=== PATIENT | female | born 1985 | race Caucasian/White ===

== ENCOUNTER 2020-08-15 07:20 | Inpatient (IN) | payer OTHER ==
[~2020-08-15] VITALS: Ht 162.6 cm; Wt 69.3 kg
[2020-08-15] MEDS ORDERED: BASAGLAR K100 UNIT/1 (07:46)
[2020-08-15 08:15] LABS: BASOPHILS ABSOLUTE AUTO 0.05 K/mm3 (0.00-0.23); BASOPHILS PERCENT AUTO 0 % (0-2); EOSINOPHILS ABSOLUTE AUTO 0.11 K/mm3 (0.00-0.68); EOSINOPHILS PERCENT AUTO 1 % (0-6); Hemoglobin 16.2 g/dL (11.5-16.0); IMMATURE GRAN ABSOLUTE AUTO 0.12 K/mm3 (0.00-0.10); IMMATURE GRAN PERCENT AUTO 1 % (0-1); LYMPHOCYTES ABSOLUTE AUTO 2.62 K/mm3 (0.84-5.20); LYMPHOCYTES PERCENT AUTO 12 % (21-46); MONOCYTES ABSOLUTE AUTO 0.97 K/mm3 (0.16-1.47); MONOCYTES PERCENT AUTO 4 % (4-13); Mean Corpuscular HGB 31.7 pg (26.0-34.0); Mean Corpuscular HGB Conc 33.1 g/dL (31.5-36.5); Mean Corpuscular Volume 96 fL (80-100); Mean Platelet Volume 9.5 fL (9.1-12.4); NEUTROPHILS ABSOLUTE AUTO 18.92 K/mm3 (1.96-9.15); NEUTROPHILS PERCENT AUTO 83 % (41-73); Platelet Count 393 K/mm3 (150-400); RDW Coefficient Variation 13.3 % (11.7-14.2); RDW Standard Deviation 47.7 fL (35.1-46.3); Red Blood Cell Count 5.11 M/mm3 (3.80-5.20); White Blood Cell Count 22.79 K/mm3 (4.00-11.30)
[2020-08-15 08:32] LABS: Alanine Aminotransfer (ALT/SGP 39 U/L (12-78); Albumin, Blood 4.1 g/dL (3.4-5.0); Albumin/Globulin Ratio 0.9 (0.8-1.8); Alk Phos 237 U/L (50-136); Anion Gap 12 mmol/L (6-16); Aspartate Aminotrans (AST/SGOT 46 U/L (12-37); Beta-hydroxybutyrate 32.6 mg/dL (0.2-2.8); Bilirubin, Total 0.8 mg/dL (0.1-1.0); Blood Urea Nitrogen 15 mg/dL (8-24); Bun/Creatinine Ratio 22.5 (12.0-20.0); CO2, Blood 18 mmol/L (21-32); Calcium, Blood 9.9 mg/dL (8.5-10.1); Chloride, Blood 105 mmol/L (98-108); Creatinine, Blood 0.67 mg/dL (0.40-1.00); Globulin, Blood 4.6 g/dL (2.2-4.0); Glomerular Filtration Rate >60 (60-); Glucose, Blood 323 mg/dL (70-99); Magnesium, Blood 2.2 mg/dL (1.6-2.4); Sodium, Blood 135 mmol/L (136-145); Total Protein, Blood 8.7 g/dL (6.4-8.2)
[2020-08-15 08:53] LABS: Source, Urine Clean Catch
[2020-08-15 08:59] LABS: Appearance, Urine Hazy (Clear); Bilirubin, Urine Neg (Neg); Blood, Urine 1+ (Neg); Color, Urine Yellow (P-Yellow); Glucose Qualitative, Urine 4+ (Neg); Ketones, Urine 4+ (Neg); Leukocyte Esterase, Urine 3+ (Neg); Nitrite, Urine Neg (Neg); Protein, Urine 2+ (Neg); Urobilinogen, Urine NORM (Normal)
[2020-08-15 09:15] LABS: Bacteria Many /hpf; Squamous Epithelial Cells Few /hpf (Few); Yeast/Fungi Urine Many /hpf
[2020-08-15 09:35] LABS: Base Excess Venous -8.3 mmol/L; Bicarbonate Venous 19.4 mmol/L (24.0-30.0); PCO2 Venous 26.3 mmHg (38-42); PO2 Venous 89.5 mmHg (38-42)
[2020-08-15] MEDS ORDERED: PRINIVIL10 MG PO (13:05)
[2020-08-15] MEDS ORDERED: HYDHCL25 PO (13:05)
[2020-08-15] MEDS ORDERED: INSULIN AS100 UNIT/7 (13:05)
[2020-08-15] MEDS ORDERED: PROM25 PO (13:06)
[2020-08-15] MEDS ORDERED: VENL37.5ER PO (13:07)
[2020-08-15] MEDS ORDERED: OXYC5 PO (13:08)
[2020-08-15 15:08] LABS: U Amphetamine Screen Not Detected; U Barbituate Screen Not Detected; U Benzodiazapine Screen Not Detected; U Buprenorphine Screen Not Detected; U Cannabinoids Screen DETECTED; U Cocaine Screen Not Detected; U Methadone Screen Not Detected; U Methamphetamine Screen Not Detected; U Opiates Screen Not Detected; U Oxycodone Screen Not Detected; U Phencyclidine Screen Not Detected; U Propoxyphene Screen Not Detected
--- NOTE | 2020-08-15 17:05 | NUR ---
SHIFT SUMMARY PT WITH INTRACTABLE VOMITTING UPON ARRIVAL, PT RECIEVED 5MG REGLAN AND 25MG PHENERGAN ON ARRIVAL FOR VOMITTING. PT REPORTS 8/10 PAIN WHICH SHE WASTREATED WITH 50MCG FENTANYL IVP. PT WAS UP TO SHOWER ON ARRIVAL SHE STATES THAT IT WILL HELP WITH NAUSEA BUT DID NOT HELP WITH NAUSEA. A/O X4, ASNWERING QUESTIONS APPROPRIATELY IN FULL SENTENCES. PT HAS INSULIN IMPLANTED INSULIN PUMP. MAGGIE THE PROVIDER IS CALLED TO CLARIFY INSULIN DOSING REGIMEN. PT WAS TREATED FOR GLUCOSE OF 425 WITH 12UNITS REG INSULIN AND 15 UNITS SEMGLEE. WILL RECHECK GLUCOSE IN 1 HR
[2020-08-15 17:14] LABS: Anion Gap 17 mmol/L (6-16); Blood Urea Nitrogen 17 mg/dL (8-24); Bun/Creatinine Ratio 23.9 (12.0-20.0); CO2, Blood 12 mmol/L (21-32); Calcium, Blood 9.8 mg/dL (8.5-10.1); Chloride, Blood 104 mmol/L (98-108); Creatinine, Blood 0.71 mg/dL (0.40-1.00); Glomerular Filtration Rate >60 (60-); Glucose, Blood 448 mg/dL (70-99); Sodium, Blood 133 mmol/L (136-145)
[2020-08-15 17:17] LABS: Potassium, Blood 6.6 mmol/L (3.5-5.5)
--- NOTE | 2020-08-15 17:49 | NUR ---
CALL PLACED TO PROVIDER STEFFANY, CRITICAL LAB CALLED WELL. PT WITH CONTINUED HYPERGLYCEMIA OF 404 DESPITE INSULIN ADMINISTRATION. NEW ORDERS ARE OBTAINED FOR NS BOLUS, NS RATE CHANGE, 5 UNIT INSULIN NOW, AND INSULIN DRIP, WITH STATUS CHANGE TO ICU. PROVIDER IS PLACING ORDERS AT THE TIME OF THIS NOTE
[2020-08-15 18:50] LABS: Blood Urea Nitrogen 20 mg/dL (8-24); Bun/Creatinine Ratio 28.1 (12.0-20.0); Calcium, Blood 9.4 mg/dL (8.5-10.1); Chloride, Blood 105 mmol/L (98-108); Creatinine, Blood 0.71 mg/dL (0.40-1.00); Glomerular Filtration Rate >60 (60-); Glucose, Blood 377 mg/dL (70-99); Potassium, Blood 4.9 mmol/L (3.5-5.5); Sodium, Blood 135 mmol/L (136-145)
[2020-08-15 18:51] LABS: Anion Gap 21 mmol/L (6-16); CO2, Blood 9 mmol/L (21-32)
[2020-08-15 19:08] LABS: Base Excess Venous -18.1 mmol/L; PCO2 Venous 34.1 mmHg (38-42); PO2 Venous 73.4 mmHg (38-42); pH Blood Venous 7.12 (7.34-7.37)
--- NOTE | 2020-08-15 20:00 | NUR ---
ASSUMPTION OF CARE RECEIVED REPORT FROM ARMANDO ROSEN IN PCU, PATIENT TRANSFERRED TO ICU VIA BED, PIVOT TRANSFERED SELF TO BED. A/O, STEADY GAIT WITH AMBULATION, TACHYCARDIC IN 130'S. SATS GREATER THAN 95% ON RA. ORIENTED PATIENT TO PLAN, ROOM AND CALL LIGHT. WILL REVIEW ORDERS AND TREAT PRESCRIBED.
--- NOTE | 2020-08-15 21:28 | NUR ---
HEART RATE REPORTED PATIENT'S HEART RATE 140-150S TO DR. BEASLEY, BLOOD SUGAR BELOW 250. CHANGED FLUID ORDERS. WILL CONTINUE TO MONITOR HEART RATE.
[2020-08-15 23:48] LABS: Anion Gap 9 mmol/L (6-16); Blood Urea Nitrogen 14 mg/dL (8-24); Bun/Creatinine Ratio 21.2 (12.0-20.0); CO2, Blood 18 mmol/L (21-32); Calcium, Blood 8.5 mg/dL (8.5-10.1); Chloride, Blood 110 mmol/L (98-108); Creatinine, Blood 0.66 mg/dL (0.40-1.00); Glomerular Filtration Rate >60 (60-); Glucose, Blood 198 mg/dL (70-99); Potassium, Blood 4.6 mmol/L (3.5-5.5); Sodium, Blood 137 mmol/L (136-145)
--- NOTE | 2020-08-16 | NUR ---
REASSESSMENT NO ACUTE CHANGES FROM INITIAL ASSESSMENT. LABS REVIEWED, INSULIN CONTINUES TO INFUSE WITH IV FLUIDS ORDERED. REMAINS TACHYCARDIC WITH NO DISCOMFORTS.
[2020-08-16 03:23] LABS: BASOPHILS ABSOLUTE AUTO 0.03 K/mm3 (0.00-0.23); BASOPHILS PERCENT AUTO 0 % (0-2); EOSINOPHILS PERCENT AUTO 0 % (0-6); Hematocrit 39.7 % (33.0-51.0); Hemoglobin 12.8 g/dL (11.5-16.0); IMMATURE GRAN ABSOLUTE AUTO 0.08 K/mm3 (0.00-0.10); IMMATURE GRAN PERCENT AUTO 1 % (0-1); LYMPHOCYTES PERCENT AUTO 12 % (21-46); MONOCYTES ABSOLUTE AUTO 1.13 K/mm3 (0.16-1.47); MONOCYTES PERCENT AUTO 6 % (4-13); Mean Corpuscular HGB 31.4 pg (26.0-34.0); Mean Corpuscular HGB Conc 32.2 g/dL (31.5-36.5); Mean Corpuscular Volume 98 fL (80-100); Mean Platelet Volume 9.5 fL (9.1-12.4); NEUTROPHILS ABSOLUTE AUTO 14.33 K/mm3 (1.96-9.15); NEUTROPHILS PERCENT AUTO 81 % (41-73); Platelet Count 365 K/mm3 (150-400); RDW Coefficient Variation 13.5 % (11.7-14.2); Red Blood Cell Count 4.07 M/mm3 (3.80-5.20); White Blood Cell Count 17.77 K/mm3 (4.00-11.30)
[2020-08-16 03:38] LABS: Anion Gap 6 mmol/L (6-16); Blood Urea Nitrogen 13 mg/dL (8-24); Bun/Creatinine Ratio 21.1 (12.0-20.0); CO2, Blood 21 mmol/L (21-32); Calcium, Blood 8.8 mg/dL (8.5-10.1); Chloride, Blood 113 mmol/L (98-108); Creatinine, Blood 0.62 mg/dL (0.40-1.00); Glomerular Filtration Rate >60 (60-); Glucose, Blood 180 mg/dL (70-99); Potassium, Blood 4.2 mmol/L (3.5-5.5); Sodium, Blood 140 mmol/L (136-145)
--- NOTE | 2020-08-16 04:00 | NUR ---
REASSESSMENT NO ACUTE CHANGES FROM PREVIOUS ASSESSMENT. BLOOD SUGARS STABLE, INSULIN DRIP TURNED TO 2UNITS/HR. HEART RATE REMAINS ELEVATED BUT DECREASING TO 110'S. PATIENT COMFORTABLE AT THIS TIME. WILL CONTINUE TO MONITOR.
--- NOTE | 2020-08-16 04:46 | NUR ---
LABS REPORTED PATIENT'S LABS TO DR. VIDES. REPORTED CURRENT CBG, ANION GAP AND FLUIDS. HE CURRENLTY WANTS TO KEEP PATIENT ON THE INSULIN DRIP AND TO HAVE THE ONCOMING HOSPITALIST ADDRESS CHANGES.
--- NOTE | 2020-08-16 06:19 | NUR ---
SHIFT SUMMARY INSULIN INFUSED THROUGH NIGHT AND CONTINUES TO INFUSE PER DR. VIDES. ANION GAP CLOSED PER RECENT LAB RESULTS. PATIENT DENYING NAUSEA AT THIS TIME, URINE OUTPUT ADEQUATE BUT CONTINUES TO HAVE FLANK PAIN R/TO KIDNEY INFECTION. HEATING PAD IN PLACE AND PATIENT REPOSITIONS SELF FOR COMFORT. VITALS STABLE WITH HEART RATE DECREASING TO 110S THIS AM. PATIENT AMBULATES INDEPENDENTLY TO TOILET WITH STEADY GAIT. PATIENT EDUCATED REGARDING PLAN FOR THIS MORNING. ICE WATER GIVEN, TOLERATING WELL. WILL CONTINUE TO MONITOR AND REPORT TO ONCOMING RN.
--- NOTE | 2020-08-16 07:39 | NUR ---
Assumed care of pt at 0700. Bedside report received from Afshan ROSEN. Pt A&O x 4. Answers questions. Follows commands. Verbalizes needs. Pt on room air. Lungs clear t/o. ST per monitor. Rate 120. Pt receiving insulin drip at 1 unit per hour. CBG stable. Plan to address continued need for insulin drip with provider rounds. Bed in lowest position. Call light in reach. Pt denies need at this time.
--- NOTE | 2020-08-16 09:30 | NUR ---
Dr Anne in to see pt. Plan for patient to restart insulin pump per usual regimen and turn off insulin drip 30 minutes afterwards. Patient receives 0.65 units/hr insulin and then gives self coverage for high blood sugars and carb counts for meals. Provider states pt may be medical floor status with telemetry.
--- NOTE | 2020-08-16 18:49 | NUR ---
SUMMARY Patient medical floor status without telmetry. Insulin drip off and pt has been dosing own insulin through insulin pump. Pt ate lunch and dinner, tolerating well. Intermittent nausea, mild. No vomiting. Pt independent in room. On room air. Bed in lowest position. Call light in reach. Will continue to closely monitor until care handoff and bedside report with oncoming Rn.
--- NOTE | 2020-08-16 19:30 | NUR ---
ASSUMED PT CARE BEDSIDE REPORT WITH VANDANA RN AT 1900. ASSUMED PT CARE. PT ALERT AND ORIENTED, INDEPENDENT IN ROOM. USES CALL LIGHT APPROPRIATELY. PT DENIES CP, DENIES SOB. C/O CONSTANT THROBBING PAIN TO FLANK, RELIEVED WITH FENTANYL AND REPOSITIONING. PT HAS SL POWERGLIDE TO SLIM. SITE WNL. DRESSING C/D/I. PT VOIDS IN TOILET. C/O INTERMITTENT NAUSEA (NONE CURRENTLY). LUNG SOUNDS CLEAR. PT ON ROOM AIR. SKIN C/D/I. CALL LIGHT IN REACH. SEE FULL SHIFT ASSESSMENT.
[2020-08-17 03:51] LABS: BASOPHILS ABSOLUTE AUTO 0.02 K/mm3 (0.00-0.23); BASOPHILS PERCENT AUTO 0 % (0-2); EOSINOPHILS ABSOLUTE AUTO 0.06 K/mm3 (0.00-0.68); EOSINOPHILS PERCENT AUTO 1 % (0-6); Hematocrit 38.6 % (33.0-51.0); Hemoglobin 12.4 g/dL (11.5-16.0); IMMATURE GRAN ABSOLUTE AUTO 0.01 K/mm3 (0.00-0.10); IMMATURE GRAN PERCENT AUTO 0 % (0-1); LYMPHOCYTES ABSOLUTE AUTO 3.72 K/mm3 (0.84-5.20); LYMPHOCYTES PERCENT AUTO 41 % (21-46); MONOCYTES ABSOLUTE AUTO 0.56 K/mm3 (0.16-1.47); MONOCYTES PERCENT AUTO 6 % (4-13); Mean Corpuscular HGB 31.4 pg (26.0-34.0); Mean Corpuscular HGB Conc 32.1 g/dL (31.5-36.5); Mean Corpuscular Volume 98 fL (80-100); NEUTROPHILS ABSOLUTE AUTO 4.79 K/mm3 (1.96-9.15); NEUTROPHILS PERCENT AUTO 52 % (41-73); Platelet Count 315 K/mm3 (150-400); RDW Coefficient Variation 13.3 % (11.7-14.2); RDW Standard Deviation 48.1 fL (35.1-46.3); Red Blood Cell Count 3.95 M/mm3 (3.80-5.20); White Blood Cell Count 9.16 K/mm3 (4.00-11.30)
[2020-08-17 04:08] LABS: Anion Gap 5 mmol/L (6-16); Blood Urea Nitrogen 6 mg/dL (8-24); Bun/Creatinine Ratio 8.9 (12.0-20.0); CO2, Blood 23 mmol/L (21-32); Calcium, Blood 8.4 mg/dL (8.5-10.1); Chloride, Blood 112 mmol/L (98-108); Creatinine, Blood 0.67 mg/dL (0.40-1.00); Glomerular Filtration Rate >60 (60-); Glucose, Blood 111 mg/dL (70-99); Magnesium, Blood 1.8 mg/dL (1.6-2.4); Phosphorus, Blood 2.9 mg/dL (2.5-4.9); Potassium, Blood 3.9 mmol/L (3.5-5.5); Sodium, Blood 140 mmol/L (136-145)
--- NOTE | 2020-08-17 06:22 | NUR ---
SHIFT SUMMARY PT HAD WONDERFUL SHIFT. REMAINED ALERT, ORIENTED AND INDEPENDENT IN ROOM. MULT C/O BACK AND FLANK PAIN, MEDICATED WITH TYLENOL AND FENTANYL. PT VSS, SBP WNL, SATS >95% ON RA. LUNG SOUNDS CLEAR. PT SKIN C/D/I. POWERGLIDE TO SLIM, SITE WNL, DRESSING INTACT. PLAN FOR PT TO DC HOME. CALL LIGHT IN REACH. WILL REPORT TO ON OIMG SHIFT.
[2020-08-17] MEDS ORDERED: ACET325 PO (09:20)
[2020-08-17] MEDS ORDERED: Senna-Extra17.2 MG PO (09:21)
[2020-08-17] MEDS ORDERED: OXAYDO5 M1 PO (09:22)
[2020-08-17] MEDS ORDERED: SULTRIDS PO (09:44)
== END 2020-08-17 10:05 | disposition home or self-care (01) | DRG 871 ==
LOC: ER 07:20 → PCU 12:17 → ICUW 12:17 → PCU 14:01 → ICUW 19:42
PROVIDERS: Internal Medicine; Nurse Practitioner Acute Care; Physician Assistant; ADMIT Family Medicine
DX: A41.9 Sepsis, unspecified organism (principal); E10.10 Type 1 diabetes mellitus with ketoacidosis without coma; N10 Acute pyelonephritis; Z90.5 Acquired absence of kidney; I10 Essential (primary) hypertension; F41.1 Generalized anxiety disorder; F32.9 Major depressive disorder, single episode, unspecified; E66.01 Morbid (severe) obesity due to excess calories; F43.10 Post-traumatic stress disorder, unspecified; Z96.41 Presence of insulin pump (external) (internal); Z68.27 Body mass index [BMI] 27.0-27.9, adult
CPT/HCPCS: 36415; 76770; 80048; 80053; 81001; 82010; 82803; 82947; 83605; 83735; 84100; 85025; 87040; 87086; 93005; 93010; 96361; 96365; 96375; 99285-25; A9270; A9270-GY; C1751; J0610; J0692; J0696; J1630; J1644; J1650; J1815; J2270; J2405; J2550; J2765; J3010; J7030; J7042; J7120

== ENCOUNTER 2022-04-21 21:40 | Inpatient (IN) | payer OTHER ==
[~2022-04-21] VITALS: Ht 162.6 cm; Wt 69.6 kg
[~2022-04-21 21:40] MED LIST: ACET325 PO; BASAGLAR K100 UNIT/1; HYDHCL25 PO; INSULIN AS100 UNIT/7; LISI10 PO; OXAYDO5 M1 PO; OXYC5 PO; PROM25 PO; SULTRIDS PO; Senna-Extra17.2 MG PO; VENL37.5ER PO
[2022-04-21 22:17] LABS: BASOPHILS ABSOLUTE AUTO 0.05 K/mm3 (0.00-0.23); BASOPHILS PERCENT AUTO 0 % (0-2); Base Excess Venous -8.1 mmol/L; Bicarbonate Venous 19.2 mmol/L (24.0-30.0); EOSINOPHILS ABSOLUTE AUTO 0.01 K/mm3 (0.00-0.68); EOSINOPHILS PERCENT AUTO 0 % (0-6); Hematocrit 47.9 % (33.0-51.0); Hemoglobin 16.3 g/dL (11.5-16.0); IMMATURE GRAN ABSOLUTE AUTO 0.06 K/mm3 (0.00-0.10); IMMATURE GRAN PERCENT AUTO 0 % (0-1); LYMPHOCYTES ABSOLUTE AUTO 2.17 K/mm3 (0.84-5.20); LYMPHOCYTES PERCENT AUTO 12 % (21-46); MONOCYTES ABSOLUTE AUTO 0.88 K/mm3 (0.16-1.47); MONOCYTES PERCENT AUTO 5 % (4-13); Mean Corpuscular HGB 30.9 pg (26.0-34.0); Mean Corpuscular Volume 91 fL (80-100); Mean Platelet Volume 9.1 fL (9.1-12.4); NEUTROPHILS ABSOLUTE AUTO 14.59 K/mm3 (1.96-9.15); NEUTROPHILS PERCENT AUTO 82 % (41-73); Platelet Count 470 K/mm3 (150-400); RDW Coefficient Variation 13.5 % (11.7-14.2); RDW Standard Deviation 45.2 fL (35.1-46.3); Red Blood Cell Count 5.27 M/mm3 (3.80-5.20); White Blood Cell Count 17.76 K/mm3 (4.00-11.30)
[2022-04-21] MEDS ORDERED: CLONAZEPAM1 MG PO (22:20)
[2022-04-21 22:56] LABS: Albumin, Blood 4.1 g/dL (3.4-5.0); Albumin/Globulin Ratio 0.9 (0.8-1.8); Beta-hydroxybutyrate 56.4 mg/dL (0.2-2.8); Bilirubin, Total 1.1 mg/dL (0.1-1.0); Bun/Creatinine Ratio 14.2 (12.0-20.0); Calcium, Blood 10.4 mg/dL (8.5-10.1); Creatinine, Blood 1.06 mg/dL (0.40-1.00); Globulin, Blood 4.6 g/dL (2.2-4.0); Potassium, Blood 4.5 mmol/L (3.5-5.5); Total Protein, Blood 8.7 g/dL (6.4-8.2)
[2022-04-21 23:47] LABS: Source, Urine Clean Catch
[2022-04-21 23:51] LABS: Appearance, Urine Cloudy (Clear); Bilirubin, Urine Neg (Neg); Blood, Urine 5+ (Neg); Color, Urine Brown (P-Yellow); Glucose Qualitative, Urine 4+ (Neg); Ketones, Urine 4+ (Neg); Leukocyte Esterase, Urine 3+ (Neg); Nitrite, Urine Neg (Neg); Protein, Urine 3+ (Neg); Urobilinogen, Urine NORM (Normal)
[2022-04-22 00:12] LABS: Red Blood Cells, Urine TNTC /hpf (0-2); White Blood Cells, Urine 25-50 /hpf (0-5)
[2022-04-22 00:13] LABS: Bacteria Many /hpf; Hyaline Casts 0-2 /lpf (0-2); Yeast/Fungi Urine Mod /hpf
[2022-04-22 00:14] LABS: Squamous Epithelial Cells Few /hpf (Few); Transitional Epithelial Cells Rare /hpf (0-Rare)
[2022-04-22 06:07] LABS: Bun/Creatinine Ratio 17.9 (12.0-20.0); Calcium, Blood 9.1 mg/dL (8.5-10.1); Creatinine, Blood 0.84 mg/dL (0.40-1.00); Potassium, Blood 4.4 mmol/L (3.5-5.5)
[2022-04-22] MEDS ORDERED: BASAGLAR K100 UNIT/3 SC (06:24)
--- NOTE | 2022-04-22 06:30 | NUR ---
ASSUMED CARE. PT ARRIVED TO UNIT AROUND 0530. AOX3, ILL APPEARING. STATES INSULIN PUMP STOPPED WORKING ABOUT A MONTH AGO, SHE HAS BEEN USING LANTUS 10 UNITS AT BEDTIME AND SLIDING SCALE T/O DAY. 2 DAYS AGO SHE STARTED TO NOT FEEL WELL, REPORTS N/V/D WITH ABDOMINAL PAIN, POOR APPETITE. HAS NOT BEEN ABLE TO KEEP ANYTHING DOWN. EVERYTHING SHE TRYS TO EAT COME UP. WEAKNESS. ON ARRIVAL TO ED SHE WAS IN DKA WITH BLOOD SUGARS 350'S, GAP 19, NA 135, CO2 17. BLOOD SUGARS NOW 200'S, SHE ARRIVED ON D51/2 NS AT 150CC/HR NOW TURNED DOWN TO 125ML/HR DUE TO TACHYCARDIA OF 130'S AND SBP IN THE 170-180'S. DENIES CHEST PAIN. GIVEN 10MG OF HYDRALAZINE, 0.5MG OF IV ATIVAN, AND ZOFRAN 4MG IV. SHE STILL HAVING DRY HEVES BUT SINCE ATIVAN IT HAS EASED. INSULIN GTT 3 UNITS/HR, GAP IS CLOSED, NA HAS CORRECTED. LONG HISTORY OF KIDNEY DISEASE WITH MULTIPLE STENTS ON LEFT SIDE, AND RIGHT KIDNEY IS REMOVED. URINE IS BROWN, CLOUDY, AND SEDIMENT. MEDIPORT ACCESSED, SHE REPORTS SHE HAS VERY SMALL VEINS. ONLY 1 BLOOD CULTURE WAS PULELD FROM [facility] WAS ABLE TO ACCESS A VASCULAR SITE. INFORMED DAYSHIFT RN OF THIS. DR. REBOLLEDO WAS CALLED REGARDING VITALS, CONSTANT NAUSEA, AND FOR MED ORDER CHANGES. PLEASE SEE ORDERS. CALL LIGHT IS IN REACH, BED IN LOW POSTION.
[2022-04-22 06:41] LABS: BASOPHILS ABSOLUTE AUTO 0.02 K/mm3 (0.00-0.23); BASOPHILS PERCENT AUTO 0 % (0-2); EOSINOPHILS PERCENT AUTO 0 % (0-6); Hemoglobin 14.9 g/dL (11.5-16.0); IMMATURE GRAN ABSOLUTE AUTO 0.08 K/mm3 (0.00-0.10); IMMATURE GRAN PERCENT AUTO 0 % (0-1); LYMPHOCYTES ABSOLUTE AUTO 0.83 K/mm3 (0.84-5.20); LYMPHOCYTES PERCENT AUTO 4 % (21-46); MONOCYTES ABSOLUTE AUTO 0.39 K/mm3 (0.16-1.47); MONOCYTES PERCENT AUTO 2 % (4-13); Mean Corpuscular HGB Conc 33.1 g/dL (31.5-36.5); Mean Corpuscular Volume 94 fL (80-100); NEUTROPHILS ABSOLUTE AUTO 18.27 K/mm3 (1.96-9.15); NEUTROPHILS PERCENT AUTO 93 % (41-73); Platelet Count 398 K/mm3 (150-400); RDW Coefficient Variation 13.7 % (11.7-14.2); RDW Standard Deviation 46.9 fL (35.1-46.3); Red Blood Cell Count 4.81 M/mm3 (3.80-5.20); White Blood Cell Count 19.59 K/mm3 (4.00-11.30)
[2022-04-22 08:51] LABS: Bun/Creatinine Ratio 17.2 (12.0-20.0); Calcium, Blood 9.4 mg/dL (8.5-10.1); Creatinine, Blood 0.82 mg/dL (0.40-1.00); Potassium, Blood 4.6 mmol/L (3.5-5.5)
[2022-04-22 08:52] LABS: Magnesium, Blood 1.8 mg/dL (1.6-2.4); Phosphorus, Blood 1.6 mg/dL (2.5-4.9)
--- NOTE | 2022-04-22 09:00 | NUR ---
0800 ASSUMED CARE PATIENT RESTED A BIT OVER NIGHT. SHE IS STILL COMPLAINING OF NAUSEA AND VOMITED ONE TIME THIS AM. ZOFRAN AND REGLAN GIVEN AT 0615. PATIENT IS ON INSULIN DRIP AND D5 1/2 NS GOING AT 125 HR INTO MEDIPORT, PULSE 130 SINUS TACH WITH STABLE BP AND CLEAR LUNG SOUNDS ON ROOM AIR. GLUCOSE STILL RUNNING IN 200'S. PATIENT UP TO TOILET TO VOID. NPO FOR NOW. WILL CONTINUE TO MONITOR AND TREAT DIRECTED.
--- NOTE | 2022-04-22 16:17 | NUR ---
UPDATE: 1600 PATIENT HAS BEEN ON AND OFF RESTING AND WRETCHING. SHE HAS BEEN UP TO BEDSIDE COMMODE AND TOILET HOWEVER EACH TIME SHE HAS ACTIVITY SHE BECOME NAUSEA'S AND VOMITS UP GREEN AND YELLOW BILE 50 TO 200 ML AT A TIME. SHE WAS BATHED THIS AFTERNOON AND SHEETS CHANGED ON BEDDING. IV FLUID 3RD BAG OF NS COMPLETE. POTASSIUM PHOS STILL GOING IV AND D5 1/2 NS AT 125/HR ALONG WITH INSULIN GTT NOW AT 7UNITS/HR. PULSE IS STILL ELEVATED 110-135 SINUS TACH. BP STILL SLIGHTLY ELEVATED SBP 140-160 DBP 100'S, LUNGS ARE CLEAR TO AUSCULTATION AND ABD SOFT AND + BT X 4 QUAD. NO EDEMA NOTED. POWER GLIDE PLACED TO RIGHT UPPER ARM FOR MORE ACCESS SITES. WILL CONTINUE TO MONITOR AND TREAT PTS DIRECTED.
[2022-04-22 16:46] LABS: Bun/Creatinine Ratio 11.4 (12.0-20.0); Calcium, Blood 8.5 mg/dL (8.5-10.1); Creatinine, Blood 0.7 mg/dL (0.40-1.00); Potassium, Blood 3.5 mmol/L (3.5-5.5)
--- NOTE | 2022-04-22 18:29 | NUR ---
END OF SHIFT SUMMARY: PATIENT HAS BEEN IN AND OUT OF BED TO COMMODE. NAUSEA STILL IN WAVES AND VOMITTING AFTER ACTIVITY. DR ANAYA WAS UPDATED THIS AFTERNOON. HER ZOFRAN WAS INCREASED PER DOSE AND SHE GOT A ONE TIME DOSE OF PHENERGRAN. WILL FOLLOW UP WITH PROGRESS AFTER MEDICATION. SHE IS STILL TACHYCARDIC LOW 100'S TO 120'S BP HAS STILL REMAINED 160'S/90'S-100'S. URINE OUTPUT IS ABOUT 300ML EACH TIME AND COLOR IS MORE FEDERICO CLEAR THAN FULL FEDERICO/PINK LIKE IT WAS THIS MORMING. GLUCOSE IS COMING DOWN TO NORMAL RANGE WITH INSULIN DRIP GOING AND TITRATING DOWN, NOW AT 6UNITS/HR. WILL GIVE REPORT TO NEXT SHIFT TO RESUME CARE.
--- NOTE | 2022-04-22 19:15 | NUR ---
ASSUMPTION OF CARE PT SITTING UP IN BED DURING BEDSIDE REPORT. SHE IS RECEIVING INSULIN GTT 6UNITS/HR AND D5 1/2NS 125ML/HR. PT HAS EMESIS BAG AND REPORTS CONSISTENT NAUSEA DESPITE MEDICATION. RECHECKED CBG 85, TITRATED INSULIN GTT AT THIS TIME. PT UP TO BEDSIDE COMMODE WITH MINIMAL ASSISTANCE AND VOIDED 200ML PALE YELLOW URINE. SINUS TACH ON MONITOR WITH RATE 110S-130S, INCREASES WITH ACTIVITY. SEE SHIFT ASSESSMENT.
[2022-04-23 04:03] LABS: Hematocrit 41.4 % (33.0-51.0); Hemoglobin 14.3 g/dL (11.5-16.0); Mean Corpuscular HGB 31.4 pg (26.0-34.0); Mean Corpuscular HGB Conc 34.5 g/dL (31.5-36.5); Mean Corpuscular Volume 91 fL (80-100); Mean Platelet Volume 8.9 fL (9.1-12.4); Platelet Count 387 K/mm3 (150-400); RDW Coefficient Variation 13.6 % (11.7-14.2); RDW Standard Deviation 45.6 fL (35.1-46.3); Red Blood Cell Count 4.56 M/mm3 (3.80-5.20); White Blood Cell Count 19.28 K/mm3 (4.00-11.30)
[2022-04-23 04:19] LABS: Albumin, Blood 3.2 g/dL (3.4-5.0); Anion Gap 8 mmol/L (6-16); Blood Urea Nitrogen 4 mg/dL (8-24); Bun/Creatinine Ratio 6.3 (12.0-20.0); CO2, Blood 21 mmol/L (21-32); Calcium, Blood 8.8 mg/dL (8.5-10.1); Chloride, Blood 110 mmol/L (98-108); Creatinine, Blood 0.63 mg/dL (0.40-1.00); Glomerular Filtration Rate 119 (60-); Glucose, Blood 126 mg/dL (70-99); Potassium, Blood 3.4 mmol/L (3.5-5.5); Sodium, Blood 139 mmol/L (136-145)
--- NOTE | 2022-04-23 06:13 | NUR ---
SHIFT SUMMARY PT HAS MOSTLY SLEPT THROUGH THE SECOND HALF OF THE NIGHT. WHEN AWAKE SHE CONTINUES TO FEEL NAUSEOUS AND OCCASIONALLY DRY HEAVES BUT HAS NOT VOMITTED IN A FEW HOURS. NAUSEA INCREASES WITH ACTIVITY. ABDOMEN SOFT, BOWEL TONES HYPOACTIVE. REMAINS NPO DUE TO NAUSEA AND VOMITTING. L FLANK PAIN PERSISTS AND PT HAS USED HEATING PAD FOR COMFORT. SHE CONTINUES TO RECEIVE INSULIN 2UNITS/HR AND D5 1/2NS 125ML/HR. SHE IS A&OX4. STANDBY ASSIST TO USE BEDSIDE COMMODE, REPOSITIONS SELF IN BED. SHE HAS VOIDED SEVERAL TIMES THIS SHIFT. DURING NAUSEA AND VOMITTING EPISODES, HR SINUS TACH 120S-130S AND HYPERTENSIVE. WHEN RESTING HR 100S, SBP 120S-130S. WILL REPORT TO ONCOMING RN.
--- NOTE | 2022-04-23 09:00 | NUR ---
AM NOTE: ASSUMED CARE OF PT AT 0700. PT ALERT AND ORIENTED X 4 THIS MORNING. THE PT LOOKS TIRED AND EXHAUSTED. SINCE THE PT HAS BEEN AWAKE THE PT HAS BEEN CONTINUOUSLY VOMITTING; PT MEDICATED PER EMAR. THE PT HAS CLEAR L/S THROUGHOUT WITH RR 18-24, O2 LEVELS 98<, AND ON RA. THE PT IS ON THE CONTINUOUS EQUINE INTERN WITH HR IN THE 130'S AND SBP IN THE 170'S; PT HR AND SBP INCREASES WITH ACTIVITY/STRESS. PT CURRENTLY HAS AN INSULIN DRIP AT 3 UNIT/HR AND NS AT 125 MLS/HR. PT HAS LEFT FLANK PAIN CURRENTLY WITH PAIN AT 5/10; PT DECLINED TYLENOL AND IS USING A HEATING PAD TO HELP ALLEVIATED HER PAIN. THE PT IS USING THE BEDSIDE COMMODE INDEPENDENTLY WITH STANDBY ASSIST. DR ANAYA IN TO ASSESS THE PT AT 0915. ORDERS FOR ATIVAN AND PROTONIX PUT IN AT THIS TIME. THE PROVIDER VERBILIZES GOALS FOR GETTING THE N/V UNDER CONTROL AND INITIATING SOLID FOODS TODAY. WILL CONTINUE TO MONITOR THROUGHOUT THE DAY.
--- NOTE | 2022-04-23 17:57 | NUR ---
SHIFT SUMMARY: PT CONTINUES TO HAVE N/V THROUGHOUT THE DAY; PT MEDICATED PER EMAR AROUND THE CLOCK. THE PT HAS CLEAR L/S THROUGHOUT, RR 20-22 AND IS ON RA. THE PT HAS BEEN TACHYCARDIC WITH HR IN THE 130'S, BUT WHEN SLEEPING HR DROPS TO 90-100'S; SBP HAVE BEEN MAINTAINING 160'S. THE PT HAS C/O LEFT FLANK PAIN, DR. ANAYA ORDERED 15 MG OF TORDOL FOR PAIN MANAGMENT THAT WAS INITIATED THIS MORNING; THE PT RESPONDED WELL TO THIS AND WAS ABLE TO GET SOME REST. THERE ARE ORDERS FOR A RENAL ULTRASOUND; [employer] NOTIFIED AND WERE ARE STILL ON THE SCHEUDLE FOR SOMETIME TODAY. THE PT HAS BEEN HAVING CBG Q1HR WITH INSULIN TITRATED IN RESPONSE, CURRENTLY INSULIN IS RUNNING AT 2 UNITS/HR. THE PT HAS BEEN SLEEPING IN AND OUT THIS SHIFT. THE PT HAS NOT BEEN ABLE TO TOLERATE FLUIDS AT THIS TIME; SHE HAS BEEN EATING ICE-CHIPS, BUT N/V RETURN. THE PT'S AUNT, SUSHANT, UPDATED THIS SHIFT AND ALL QUESTIONS WERE ANSWERED AT THIS TIME. PT IS INDEPENDENT WITH A STANDBY ASSIST WHEN USING THE BEDSIDE COMMODE. WILL CONTINURE TO MONITOR UNTIL ONCOMING NURSE ARRIVES.
--- NOTE | 2022-04-23 20:00 | NUR ---
ASSUMED CARE OF PT AT 1900. REPORT RECEIVED AT BEDSIDE. PT PRESENTS IN BED. OPENS EYES TO GREETING. BEGINS TO HAVE DRY HEAVING. PT HAS SMALL AMOUNT OF BILE TINGED LIQUID. PT SOMEWHAT WITHDRAWN. INSULIN DRIP AT 3 UNITS PER HOUR. HOURLY GLUCOSE CHECKS. WILL REVIEW CHART AND PLAN OF CARE FOR THIS PT.
--- NOTE | 2022-04-23 21:48 | NUR ---
CALL MADE TO DR VIDES CONCERNING ON-GOING VOMITING. PT DOES HAVE DRY HEAVES WHEN STAFF ENTERS ROOM. SHE REQUESTED ATIVAN AND WAS INFORMED UNDER PREVIOUS ORDER IT WAS TOO SOON. DID RECEIVE ORDER TO INCREASE FREQUENCY IF NEEDED AND DOSE. AM LABS ALSO ORDERED.
--- NOTE | 2022-04-23 23:30 | NUR ---
PT MEDICATED WITH 1 MG ATIVAN WITH IMPROVEMENT IN HEART RATE, BLOOD PRESSURE, AND NAUSEA. PT CURRENTLY RESTING IN BED.
[2022-04-24 03:30] LABS: Hematocrit 36.6 % (33.0-51.0); Hemoglobin 12.6 g/dL (11.5-16.0); Mean Corpuscular HGB 31.2 pg (26.0-34.0); Mean Corpuscular HGB Conc 34.4 g/dL (31.5-36.5); Mean Corpuscular Volume 91 fL (80-100); Mean Platelet Volume 9.3 fL (9.1-12.4); Platelet Count 319 K/mm3 (150-400); RDW Coefficient Variation 13.5 % (11.7-14.2); RDW Standard Deviation 45.1 fL (35.1-46.3); Red Blood Cell Count 4.04 M/mm3 (3.80-5.20); White Blood Cell Count 11.84 K/mm3 (4.00-11.30)
[2022-04-24 03:47] LABS: Bun/Creatinine Ratio 4.2 (12.0-20.0); Creatinine, Blood 0.72 mg/dL (0.40-1.00); Potassium, Blood 3.3 mmol/L (3.5-5.5)
--- NOTE | 2022-04-24 06:25 | NUR ---
PT HAS BEEN UP TO TOILET SEVERAL AT DIFFERENT TIMES DURING NIGHT. NO ISSUES WITH AMBULATION. NAUSEA HAS BEEN MINIMAL THIS NIGHT WITH DOSING OF ATIVAN. PT DOES AWAKEN THIS MORNING AND COMPLAINS OF NAUSEA AND IS MEDICATED WITH ATIVAN. PT CALLS BACK AFTER APPROX 15 MINUTES AND ASKED IF SHE COULD HAVE ANYTHING FOR ANXIETY. REMINDED PT THAT THE ATIVAN IS FOR ANXIETY, AND THAT IT HAS ALSO BEEN HELPING WITH HER NAUSEA. PT CURRENTLY NOT HAVING DRY HEAVES SHE WAS WHEN SHE REQUESTED ANXIETY MEDICATION. PT CONTINUES ON INSULIN DRIP AT 2 UNTIS PER HOUR. CONTINUING WITH Q 1 HOUR GLUCOSE CHECKS. PT MEDICATED WITH 4 MG ZOFRAN THIS MORNING FOR RETURN OF DRY HEAVING. WILL CONTINUE TO MONITOR PT, AND WILL REPORT OFF TO ONCOMING RN.
--- NOTE | 2022-04-24 09:02 | NUR ---
AM NOTE: PT AWAKE AND A&O X 4; THE PT IS DRY HEAVING THIS MORNING WHEN I CAME ONTO SHIFT. DR ANAYA D/C ATIVAN AND INITIATED HOME ANTI-ANXIETY MEDS; PT UNABLE TO TOLERATE PO MEDS AT THIS TIME DUE TO CONTINUOS N/V. THE PT HAS CLEAR LUNG SOUNDS THROUGHOUT, RR 16-18, O2 LEVELS MAINTAINING 97< AND IS ON RA. PT TACHYCARDIC WITH HR IN THE 130-140'S AND SBP IN THE 180'S. PT WAS ABLE TO SHOWER THIS MORNING INDEPENDENTLY; NEW BED LINENS PLACED. PT WAS ABLE TO BRUSH TEETH THIS MORNING. NEW 5-LEAD STICKERS PLACED THIS MORNING. THE PT INDEPENDENT WITH BEDSIDE COMMODE WITH STANDBY ASSIST. PHOTOGRAPHIC HAND DEVELOPER AT BEDSIDE THIS MORNING AT 0908 TO DISCUSS WITH THE PT DIET HX AND PLAN OF CARE FOR ADVANCING DIET WHEN PT CAN TOLERATE. WILL CONTINUE TO MONITOR THROUGHOUT THE DAY.
--- NOTE | 2022-04-24 13:06 | NUR ---
Called to see patient for increasing nausea. Pt has mild headache no ringing in her ears no visurla distubance. She dose not have an appetite. having wretching and vomiting worse with movement. Having spasms in her back where her stent is in her kidney. She feels mildly constipated not passing much gas. she denies any back pain or joint pain. She pale and looks unwell. She in ot doing any over the counter medicaions or supplements. She denies alcohol use states she sometimes smokes marijuana. She recently moved here. She has a primary care doctor and a urologist back home. She has had bouts of nause a like this before. Review of symptoms and and medications with pharmcisit. Will review with nursing and physician. Reccomend pt get a glass cleaner locally.
[2022-04-24 13:38] LABS: Hematocrit 40.9 % (33.0-51.0); Hemoglobin 13.9 g/dL (11.5-16.0); Mean Corpuscular HGB 30.5 pg (26.0-34.0); Mean Corpuscular Volume 90 fL (80-100); Mean Platelet Volume 9.3 fL (9.1-12.4); Platelet Count 364 K/mm3 (150-400); RDW Coefficient Variation 13.4 % (11.7-14.2); RDW Standard Deviation 44.3 fL (35.1-46.3); Red Blood Cell Count 4.55 M/mm3 (3.80-5.20); White Blood Cell Count 16.93 K/mm3 (4.00-11.30)
--- NOTE | 2022-04-24 14:37 | NUR ---
PT CONTINUES TO COMPLAIN OF LEFT FLANK PAIN. PER PT SHE HAD STENT PLACED IN AUGUST, REPLACED IN OCTOBER AND IS OVERDUE FOR STENT REPLACEMENT. PT REPORTS SHE SEES UROLOGIST AT [facility]. PT HAS HAD DECREASED EMESIS, INCREASES WITH AMBULATION. PT HYPERTENSIVE, TREATED FOR NAUSEA AND HYPERTENSION PER EMAR. PHONE CALL TO DR. ANAYA, UPDATED ON INCREASED WBC AND PTS REPORTED OVERDUE STENT REPLACEMENT. NO NEW ORDERS. WILL CONTINUE TO MONITOR.
--- NOTE | 2022-04-24 17:44 | NUR ---
SHIFT SUMMARY: PT CURRENTLY ASLEEP AND HAS BEEN FOR THE LAST TWO HOURS; PT'S N/V HAS APPEARED TO HAVE SLOWED DOWN AT THIS TIME. PT HAD CONSTANTLY BEEN VOMITTING THIS SHIFT UNTIL THIS AFTERNOON AROUND 1530. PT REMAINS A&O X 4 AND INDEPENDENT WITH ADL'S; STANDBY ASSIST WITH BESIDE COMMODE. PT'S CBG TODAY HAS BEEN FLUCTUATING IN THE 200'S; INSULIN DRIP ON AT 4 UNITS/HR. PT L/S CLEAR THROUGHOUT, O2 LEVELS 94<, AND ON RA. THE PT HR IN THE 130'S AND SBP IN THE 130'S; PT RECIEVED ONE DOSE OF HYDRALAZINE THIS SHIFT AND RESPONDED WELL. ATIVAN D/C THIS SHIFT. WILL CONTINUE TO MONITOR UNTIL ONCOMING NURSE ARRIVES.
[2022-04-25 03:48] LABS: BASOPHILS ABSOLUTE AUTO 0.01 K/mm3 (0.00-0.23); BASOPHILS PERCENT AUTO 0 % (0-2); EOSINOPHILS ABSOLUTE AUTO 0.01 K/mm3 (0.00-0.68); EOSINOPHILS PERCENT AUTO 0 % (0-6); Hematocrit 37.1 % (33.0-51.0); Hemoglobin 12.7 g/dL (11.5-16.0); IMMATURE GRAN ABSOLUTE AUTO 0.02 K/mm3 (0.00-0.10); IMMATURE GRAN PERCENT AUTO 0 % (0-1); LYMPHOCYTES ABSOLUTE AUTO 2.87 K/mm3 (0.84-5.20); LYMPHOCYTES PERCENT AUTO 30 % (21-46); MONOCYTES ABSOLUTE AUTO 0.75 K/mm3 (0.16-1.47); MONOCYTES PERCENT AUTO 8 % (4-13); Mean Corpuscular HGB 31.1 pg (26.0-34.0); Mean Corpuscular HGB Conc 34.2 g/dL (31.5-36.5); Mean Corpuscular Volume 91 fL (80-100); NEUTROPHILS ABSOLUTE AUTO 6.06 K/mm3 (1.96-9.15); NEUTROPHILS PERCENT AUTO 62 % (41-73); Platelet Count 319 K/mm3 (150-400); RDW Coefficient Variation 13.2 % (11.7-14.2); RDW Standard Deviation 44.2 fL (35.1-46.3); Red Blood Cell Count 4.09 M/mm3 (3.80-5.20); White Blood Cell Count 9.72 K/mm3 (4.00-11.30)
[2022-04-25 04:19] LABS: Albumin, Blood 2.7 g/dL (3.4-5.0); Anion Gap 4 mmol/L (6-16); Blood Urea Nitrogen 3 mg/dL (8-24); Bun/Creatinine Ratio 4.4 (12.0-20.0); CO2, Blood 27 mmol/L (21-32); Calcium, Blood 8.3 mg/dL (8.5-10.1); Chloride, Blood 107 mmol/L (98-108); Creatinine, Blood 0.69 mg/dL (0.40-1.00); Glomerular Filtration Rate 116 (60-); Glucose, Blood 151 mg/dL (70-99); Magnesium, Blood 1.4 mg/dL (1.6-2.4); Phosphorus, Blood 3.9 mg/dL (2.5-4.9); Potassium, Blood 3.2 mmol/L (3.5-5.5); Sodium, Blood 138 mmol/L (136-145)
--- NOTE | 2022-04-25 05:33 | NUR ---
SHIFT SUMMARY IT SEEMS IF THE 10MG IV OF COMPAZINE HAS WORKED THE BEST FOR PT ENTRACTABLE VOMITING. PT HAS BEEN ABLE TO SLEEP AFTER THAT WAS GIVEN. BS HAS RANGED 124-200 PT STILL REMAINS ON 2 UNITS PER HOUR AND FINGER STICKS Q1 HOPEFULLY PT CAN BE TRANSISTIONED TO SUBQ INSULINE IF SHE IS ABLE TO KEEP PO DOWN. IT HAS BEEN ABOUT 4 HRS WITHOUT VOMITING. HYDRALIZINE 10 MG X1 WAS GIVEN FOR HYPERTENSION>170 SHE CURRENTLY IS NORMOTENSIVE 104/72 PT WAS TACHICRADIC RANGING [id number] SHE SITTING AT 106 RR 26 AND SPO2 92 ON ROOM AIR. WILL CONTINUE TO MONITOR AND TITRATE INSULIN APROPRIATE AND REPORT TO ONCOMING RN.
--- NOTE | 2022-04-25 08:20 | NUR ---
AM NOTE: ASSUMED CARE OF PT AT 0700. PT IS IN AND OUT OF SLEEP AT THIS TIME. WHEN I CAME ONTO THE FLOOR THE PT WAS VOMITTING, BUT NOW IS SLEEPING IN BED WITH DECREASED VOMITTING EPISODES. THE CONTINUES TO BE A&O X 4, AND IS INDEPENDENT WITH ADLS WITH A STANDBY ASSIST WHEN USING THE COMMODE. THE PT IS AFEBRILE THIS MORNING. PT HAS CLEAR LUNG SOUNDS THROUGHOUT, RR 14/16, O2 97< AND IS ON RA. THE PT IS TACHYCARDIC WITH HR IN THE 130-140'S AND SBP IN THE 170'S. THE PT HAS HYPERACTIVE BS IN ALL 4 QUADRANTS. THE PT HAS INSULIN INFUSING AT 2 UNITS/HR. THE PT HAD LOW POTASSIUM AND MAGNESIUM LEVELS THIS MORNING; PROVIDER ORDERED IV SOLUTIONS AND THEY WERE INITIATED THIS MORNING. THE PT HAS C/O LEFT FLANK PAIN THIS MORNING; AFTER TALKING MORE ABOUT THE PATTERN OF THE PAIN THE PT STATED THAT THIS WAS A LONG STANDING PAIN AND IS GETTING WORSE R/T BEDREST AND VOMITTING. PT HAS NO PAIN MANAGEMENT ORDERS AT THIS TIME THAT SHE CAN TOLERATE; WILL PLAN ON TALKING WITH PROVIDER ABOUT PAIN MANAGEMENT. WILL CONTINUE TO MONITOR THROUGHOUT THE DAY.
--- NOTE | 2022-04-25 14:59 | NUR ---
Pt nausea starting to decrease. less ashen more verbal. will review with hopitalist getting nephrology follow up out patient as support for her care needs.
--- NOTE | 2022-04-25 18:42 | NUR ---
SHIFT SUMMARY: PT REMAINS A&O X 4 THIS SHIFT. THE PT HAS CONTINUED TO COMPLETE ADL'S INDEPENDENTLY WITH A STANDBY ASSIST WITH THE COMMMODE. THE PT HAS HAD A DECREASE IN THE NUMBER OF VOMITING EPISODES, BUT STILL HAS SLIGHT NAUSEA THROUGHOUT THE DAY. THE PT HAS BEEN SLEEPING FOR THE MAJORITY OF THE DAY. THE PT WAS ABLE TO DRINK 2, 8 OZ CUPS OF CLEAR LIQUID AND WAS ABLE TO KEEP THAT DOWN. THE PT EXPRESSED THE DESIRE TO EAT DINNER THIS EVENING, SO A TRAY WAS ORDER. DR BEASLEY WAS UPDATED AND PLANS TO INITATED HER LONG LASTING INSULIN AND D/C THE INSULIN DRIP AND D5 1/2 NS WERE INITATED. THE PT WAS ABLE TO EAT HALF OF A CHEESEBURGER THIS EVEN, UNTIL SHE BECAME NAUSEOUS. THE PT DID HAVE A VOMITTING EPISODE. THE LONG LASTING INSULIN WAS STILL ADMINISTERED AND PER DR BEASLEY THE INSULIN DRIP SHOULD BE TURNED OFF 90 MINUTES POST ADMINISTERING THE LANTUS. THE PT HAS DESIRE TO TRY AGAIN WITH SOME MORE FOOD AFTER SHE TAKES A HOT SHOWER. I WILL PASS THIS PLAN ALONG TO THE ONCOMING NURSE. THE PT HAS THE INSULIN DRIP AT 1 UNITS/HR. WILL CONTINUE TO MONITOR UNTIL ONCOMING NURSE ARRIVES.
[2022-04-26 04:01] LABS: Albumin, Blood 2.6 g/dL (3.4-5.0); Anion Gap 14 mmol/L (6-16); Blood Urea Nitrogen 13 mg/dL (8-24); Bun/Creatinine Ratio 16.1 (12.0-20.0); CO2, Blood 18 mmol/L (21-32); Calcium, Blood 7.9 mg/dL (8.5-10.1); Chloride, Blood 101 mmol/L (98-108); Creatinine, Blood 0.81 mg/dL (0.40-1.00); Glomerular Filtration Rate 97 (60-); Glucose, Blood 419 mg/dL (70-99); Potassium, Blood 4.4 mmol/L (3.5-5.5); Sodium, Blood 133 mmol/L (136-145)
--- NOTE | 2022-04-26 06:04 | NUR ---
SHIFT SUMMARY PT IS CURRENTLY RESTING. PT WAS TAKEN OFF INSULIN DRIP AT 2000 PER ORDERED. PT WAS ABLE TO SHOWER AND COMPLEAT SOME MUCH DESIRED ADLS AFTER SHOWER. PT FELT RELITIVLY WELL FOR FIRST PART OF SHIFT BUT AFTER TAKING NIGHT MEDS PT BEGAN TO SUFFER FROM N/V I GAVE ALL ANTEMITIC AVAILIABLE PT STILL CONTINUED TO VOMIT. PHONED KARAN AND RECIEVED AN ORDER FOR LORAZAPAM 1MG. AFTER RECIEVING 1MG OF ATIVAN PT HAS BEEN COMFORTABLE RESTING. DURRING HER HYPEREMISIS PERIOD PT WAS HYPERTENSIVE IN 180'S 10 MG HYDRALAZINE IV GIVEN CONTROLLING BLOOD PRESSURE. HR WAS ALSO ELEVATED AT THAT TIME GHIGH 166 CURRENT HR IS 110. PT REMAINS ON RA SATURATING 95. WILL CONTINUE TO MONITOR AND REPORT OFF TO ONCOMING RN.
--- NOTE | 2022-04-26 09:15 | NUR ---
AM NOTE... ASSUMED CARE OF PT AT 0700 THE PT IS A&Ox4 AND IND IN THE ROOM. THE PT WAS ADMITTED WITH DKA WHICH HAS RESOLVED SINCE ADMIT. THE PT CURRENTLY DENIES ANY NAUSEA AND STATES SHE IS HUNGRY AND WANTING BREAKFAST. THE PT IS IN SINUS TACH IN THE 110'S-120'S THIS INCREASES TO 130'S-140'S WITH ACTIVITY. BP IS STABLE. NO SWELLING OR EDEMA IS NOTED ON ASSESSMENT. BT PRESENT AND NORMOACTIVE. ABD IS TENDER D/T THE N/V THE LAST SEVERAL DAYS. THE PT ATE 50% OF HER BREAKFAST AND DRANK 250MLS THE PT DENIED ANY NAUSEA AFTER EATING SO FAR. CALL LIGHT IN REACH WILL CONTINUE TO MONITOR.
[2022-04-26 14:42] LABS: Bun/Creatinine Ratio 17.9 (12.0-20.0); Calcium, Blood 8.4 mg/dL (8.5-10.1); Creatinine, Blood 0.9 mg/dL (0.40-1.00); Potassium, Blood 3.9 mmol/L (3.5-5.5)
--- NOTE | 2022-04-26 16:42 | NUR ---
PT TRANSFER.... PT WAS TRANSFERED OUT TO PCU. THE PT'S VS STABLE AT THIS TIME SHE DENIED ANY NAUSEA. THE PT HAS BEEN ABLE TO EAT BOTH BREAKFAST AND LUNCH WITH NO VOMITING THIS SHIFT. Q4 CBG CHECKS WERE DONE THIS SHIFT AND THE PT WAS TREATED PER CORRECTION SCALE. REPORT WAS GIVEN TO CELINA ROSEN IN PCU, PT'S BELONGINGS WERE PACKED AND SENT WITH THE PT.
--- NOTE | 2022-04-26 17:36 | NUR ---
SHIFT SUMMARY: PT WAS TRANSFER FROM ICU THIS AFTERNOON. REPORT RECIEVED FROM GARRET ROSEN. PT CURRENTLY SINUS TACH IN LOW 100S AT THIS TIME. INDEPENDENT IN ROOM. CALL LIGHT IN REACH. DENIES NEEDS OR CONCERNS.
[2022-04-27 05:59] LABS: Albumin, Blood 2.6 g/dL (3.4-5.0); Anion Gap 8 mmol/L (6-16); Blood Urea Nitrogen 16 mg/dL (8-24); Bun/Creatinine Ratio 19.7 (12.0-20.0); CO2, Blood 23 mmol/L (21-32); Chloride, Blood 107 mmol/L (98-108); Creatinine, Blood 0.81 mg/dL (0.40-1.00); Glomerular Filtration Rate 97 (60-); Glucose, Blood 170 mg/dL (70-99); Phosphorus, Blood 3.5 mg/dL (2.5-4.9); Potassium, Blood 3.7 mmol/L (3.5-5.5); Sodium, Blood 138 mmol/L (136-145)
--- NOTE | 2022-04-27 06:18 | NUR ---
SHIFT SUMMARY\ PT ALERT AND ORIENTED X 4. PHYSICIAN NOTIFIED DURING SHIFT OF HIGH HEART RATE. MEDICATED PER EMAR. HR CURRENLY 90'S. PT HYPERTENSIVE AT BEGINNING OF SHIFT, MEDICATED PER EMAR. NO CP OR PRESSURE. OXYGEN SATURATION MAINTAINED ABOVE 95% ON RA. PT VOMITTING AT BEGINNING OF SHIFT,PHYSICIAN NOTFIED. MEDICATED PER EMAR. PT ABLE TO REST DURING SHIFT AFTER MEDICATED. REPORTS NAUSEA WITH NO VOMITTING DURING SECOND HALF OF SHIFT. MEDICATED. PT RESTING NOW. MEDIPORT ACCESSED,TKO RUNNING. PT USES CALL LIGHT APPROPRIATELY. CALL LIGHT WITHIN REACH. WILL CONT TO MONITOR UNTIL REPORT GIVEN TO DAYSHIFT RN.
--- NOTE | 2022-04-27 14:08 | NUR ---
DISCHARGE SUMMARY PT WALKED OUT OF BUILDING ESCORTED BY ARLENE. ALL PERSONAL BELONGINGS AND DISCHARGE INSTRUCTIONS WERE IN THE PATIENT'S POSSESSION AT TIME OF DISCHARGE. ALL QUESTIONS AND CONCERNS WERE ADDRESSED PRIOR TO DISCHARGE. PT STATED AN UNDERSTANDING OF S/S TO WATCH FOR AND WHEN TO SEEK FURTHER MEDICAL CARE.
== END 2022-04-27 13:17 | disposition home or self-care (01) | DRG 919 ==
LOC: ER 21:40 → ICUE 04-22 04:00 → ICUW 04-22 04:00 → ER 04-22 05:35 → ICUE 04-22 05:35 → PCU 04-26 16:30
PROVIDERS: Family Medicine; Internal Medicine; Physician Assistant; ADMIT Family Medicine
DX: T85.614A Breakdown (mechanical) of insulin pump, initial encounter (principal); A41.9 Sepsis, unspecified organism; E10.10 Type 1 diabetes mellitus with ketoacidosis without coma; R65.20 Severe sepsis without septic shock; N17.9 Acute kidney failure, unspecified; N10 Acute pyelonephritis; E87.1 Hypo-osmolality and hyponatremia; R31.9 Hematuria, unspecified; E87.6 Hypokalemia; E83.42 Hypomagnesemia; Z96.0 Presence of urogenital implants; F12.10 Cannabis abuse, uncomplicated; F32.A Depression, unspecified; F41.1 Generalized anxiety disorder; F43.10 Post-traumatic stress disorder, unspecified; K57.90 Diverticulosis of intestine, part unspecified, without perforation or abscess without bleeding; N18.9 Chronic kidney disease, unspecified; I12.9 Hypertensive chronic kidney disease with stage 1 through stage 4 chronic kidney disease, or unspecified chronic kidney disease; E10.22 Type 1 diabetes mellitus with diabetic chronic kidney disease; F17.210 Nicotine dependence, cigarettes, uncomplicated; E83.39 Other disorders of phosphorus metabolism; E86.0 Dehydration; Z96.41 Presence of insulin pump (external) (internal); Z98.890 Other specified postprocedural states; Z87.440 Personal history of urinary (tract) infections; Z90.5 Acquired absence of kidney; Z87.442 Personal history of urinary calculi; Z88.0 Allergy status to penicillin; Z87.19 Personal history of other diseases of the digestive system; Z91.041 Radiographic dye allergy status; Z79.899 Other long term (current) drug therapy; Z79.811 Long term (current) use of aromatase inhibitors; Z79.4 Long term (current) use of insulin; Z79.891 Long term (current) use of opiate analgesic
CPT/HCPCS: 36415; 74176; 76770; 80048; 80053; 80069; 81001; 81025; 82010; 82803; 82947; 83036; 83605; 83735; 84100; 85025; 85027; 87040; 87086; 96361; 96365; 96366; 96375; 96376; 99285-25; A9270; C1751; C9113; J0360; J0696; J0780; J1200; J1642; J1650; J1790; J1815; J1885; J2060; J2405; J2550; J2765; J3010; J3030; J3475; J3480; J7030; J7042; J7050; J7060

== ENCOUNTER → 2022-08-05 | Outpatient (CLI) | payer OTHER ==
[~2022-08-05] MED LIST changes: +BASAGLAR K100 UNIT/3 SC; +Bactrim Ds Tab1 EACH PO; +CLONAZEPAM1 MG PO; +Diflucan150 MG PO; +MICONAZOLE 745 G1 VAG
== END | disposition home or self-care (01) ==
LOC: LAB SHORT 13:37 → LAB 13:37
DX: N39.0 Urinary tract infection, site not specified (principal)
CPT/HCPCS: 87086

== ENCOUNTER → 2022-08-15 | Outpatient (CLI) | payer OTHER | LOC: LAB 07:37 → LAB SHORT 07:37 | DX: D22.62 Melanocytic nevi of left upper limb, including shoulder (principal) | CPT/HCPCS: 88305 ==